=== PATIENT | female | born 1975 | race Caucasian/White ===

== ENCOUNTER 2021-01-26 17:02 | Emergency (ER) | payer MEDICARE, SELFPAY ==
[2021-01-26 17:26] VITALS: BP 138/79; PULSE 99; O2SAT 98
[2021-01-26 17:29] VITALS: BP 138/79; PULSE 96; RESP 25; TEMP 37.5; O2SAT 96; BMI 26.4
--- NOTE | 2021-01-26 17:32 | XR_ITS ---
PROCEDURE INFORMATION: Exam: XR Chest Exam date and time: 01/26/2021 5:32 PM Age: 45 years old Clinical indication: Shortness of breath; Additional info: SOA TECHNIQUE: Imaging protocol: XR of the chest. Views: 2 views. COMPARISON: No relevant prior studies available. FINDINGS: Tubes, catheters and devices: There is a dual lead right subclavian cardiac pacer device. Lungs: Hazy airspace disease in the right middle lobe and right lower lung, partially obscuring the right heart border and the medial right diaphragm. There is hazy opacity at the left cardiophrenic angle, which may be a pericardial fat pad rather than pulmonary infiltrate. Slight pulmonary hyperinflation. Pleural spaces: Unremarkable. No significant pleural effusion. No pneumothorax. Heart/Mediastinum: The cardiac silhouette is normal size. Vasculature: Large number of anterior left upper quadrant abdominal metallic coils, correlate with surgical history. Bones/joints: Sternotomy wires.There are spinal degenerative changes, with multilevel disc narrrowing and spondylosis. Gastrointestinal tract: Mild gaseous distention of left upper quadrant colon loops, no significantly dilated loops as visualized. IMPRESSION: 1. Hazy airspace disease in the right middle and lower lobes, correlate for pneumonia or less likely asymmetric edema. 2. Additional nonemergency and chronic findings as above.
[2021-01-26 17:41] VITALS: BP 127/70; PULSE 101; O2SAT 95
[2021-01-26 17:54] LABS: Coronavirus 19, PCR Not Detected (NotDetected); Influenza A, PCR Not Detected (NotDetected); Influenza B, PCR Not Detected (NotDetected)
[2021-01-26 17:59] LABS: Basophils # 0.1 K/mm3 (0-0.2); Basophils % 0.6 % (0.1-2.0); Eosinophils # 0.1 K/mm3 (0.0-0.4); Eosinophils % 0.7 % (0.1-12.0); Hematocrit 37.8 % (37.0-47.0); Hemoglobin 13.4 g/dL (12.2-16.2); Lymphocytes # 1.4 K/mm3 (0.7-4.5); Lymphocytes % 10.5 % (10-50); Mean Corpuscular HGB Conc 35.4 g/dL (31.8-35.4); Mean Corpuscular Volume 98.9 fl (81-99); Mean Platelet Volume 7.9 fl (7.4-10.4); Monocytes # 1.4 K/mm3 (0.1-1.0); Monocytes % 10.3 % (1.7-9.3); Neutrophils # 10.6 K/mm3 (1.8-7.8); Neutrophils % 77.8 % (37.0-80.0); Platelet Count 350 K/mm3 (142-424); Red Blood Count 3.82 M/mm3 (4.20-5.40); Red Cell Distribution Width 13.3 % (11.5-17.5); White Blood Count 13.6 K/mm3 (4.8-10.8)
[2021-01-26 18:00] VITALS: BP 123/75; PULSE 100; O2SAT 95
[2021-01-26 18:07] LABS: Alanine Aminotransferase 7 U/L (12-78); Albumin Level 4.1 g/dl (3.5-5.0); Albumin/Globulin Ratio 1.2 (1.1-1.8); Alkaline Phosphatase 58 U/L (38-126); Anion Gap 10.9 mEq/L (5-15); Aspartate Amino Transferase 38 U/L (14-36); Bilirubin,Total 0.8 mg/dl (0.2-1.3); Blood Urea Nitrogen 5 mg/dl (7-17); Calcium 8.9 mg/dl (8.4-10.2); Carbon Dioxide 28 mmol/L (22.0-30.0); Chloride 95 mmol/L (98-107); Creatinine Clearance Estimated 194 mL/min (50-200); Estimated Glomerular Filt Rate 172 ml/min (>60); GFR (African American) 208 ML/MIN (>60); Globulin 3.3 g/dL (1.3-3.2); Glucose 95 mg/dl (74-100); Potassium 3.9 mmoL/L (3.5-5.1); Sodium 130 mmol/L (136-145); Total Protein,Serum 7.4 g/dl (6.3-8.2)
[2021-01-26 18:08] LABS: Lactic Acid 1.5 mmol/L (0.7-2.1)
--- NOTE | 2021-01-26 19:13 | PC.NURSE ---
Called RT to request treatment
[2021-01-26 19:25] VITALS: PULSE 92; PULSE 95
--- NOTE | 2021-01-26 20:09 | HMH.EDGENADL ---
ED Disposition Clinical Impression: Pneumonia, COPD exacerbation Disposition: Home, Self-Care Condition on Discharge: Fair Instructions: Pneumonia-Adult, DI for Shortness of Breath Referrals: Wenceslao Gandara [Primary Care Provider] - - Critical Care Critical Care Time: No Attestation: On 01/26/21, the high probability of a clinically significant, sudden or life threatening deterioration of the following system(s) required my full and direct attention, intervention and personal management. The time I documented below is in addition to time spent performing reported procedures but includes the following listed in this critical care notation. Medical Decision Making - Myke Inquiry Pt receiving controlled substance: No Vital Signs: 01/26/21 17:26 01/26/21 17:29 01/26/21 17:41 Temperature 99.5 F Temperature Source Oral Pulse Rate 99 H 101 H Pulse Rate [Radial] 96 H Respiratory Rate 25 H Blood Pressure 138/79 127/70 Blood Pressure [Left Arm] 138/79 Blood Pressure Mean 88 88 Blood Pressure Mean [Left Arm] 98 02 Sat by Pulse Oximetry 98 96 95 Oxygen Delivery Method Room Air 01/26/21 18:00 01/26/21 19:25 Temperature Temperature Source Pulse Rate 100 H 92 H Pulse Rate [Radial] Respiratory Rate Blood Pressure 123/75 Blood Pressure [Left Arm] Blood Pressure Mean 87 Blood Pressure Mean [Left Arm] 02 Sat by Pulse Oximetry 95 Oxygen Delivery Method - Lab Data Lab Results 01/26/21 17:44: WBC 13.6 H, RBC 3.82 L, Hgb 13.4, Hct 37.8, MCV 98.9, MCH 35.0 H, MCHC 35.4, RDW 13.3, Plt Count 350, MPV 7.9, Neut % (Auto) 77.8, Lymph % (Auto) 10.5, [place] % (Auto) 10.3 H, Eos % (Auto) 0.7, Baso % (Auto) 0.6, Neut # (Auto) 10.6 H, Lymph # (Auto) 1.4, [place] # (Auto) 1.4 H, Eos # (Auto) 0.1, Baso # (Auto) 0.1 01/26/21 17:44: Sodium 130 L, Potassium 3.9, Chloride 95 L, Carbon Dioxide 28, Anion Gap 10.9, BUN 5 L, Creatinine 0.40 L, Estimated Creat Clear 194, Estimated GFR 172, Est GFR ( Amer) 208, Glucose 95, Calcium 8.9, Total Bilirubin 0.8, AST 38 H, ALT 7 L, Alkaline Phosphatase 58, Total Protein 7.4, Albumin 4.1, Globulin 3.3 H, Albumin/Globulin Ratio 1.2 01/26/21 17:44: Lactate 1.5 01/26/21 17:44: SARS-CoV-2 (PCR) Not detected, Influenza A Untype (PCR) Not detected, Influenza Type B (PCR) Not detected Result diagrams: 01/26/21 17:44 01/26/21 17:44 Orders (Tests/Meds): ED MEDICATIONS Generic Name Dose Route Start Last Admin Trade Name Freq PRN Reason Stop Dose Admin Doxycycline Hyclate 100 mg 01/26/21 21:00 01/26/21 19:20 Doxycycline Hycl 100 Mg Tablet PO 02/09/21 20:59 100 mg BID SADE Administration Discontinued Medications Generic Name Dose Route Start Last Admin Trade Name Freq PRN Reason Stop Dose Admin Albuterol/Ipratropium 3 ml 01/26/21 19:06 01/26/21 19:25 Ipratropium/Albuterol 3 Ml Neb IH 01/26/21 19:07 3 ml ONCE ONE Administration Amoxicillin/Clavulanate Potassium 125 mg 01/26/21 19:06 01/26/21 19:41 Amox & Pot Clavulanate 400-57mg/5ml 50ml Bottle PO 01/26/21 19:07 Not Given ONCE ONE Amoxicillin/Clavulanate Potassium 1 each 01/26/21 19:23 01/26/21 19:25 Amoxicillin/Pot Clavulan 500mg Tablet PO 01/26/21 19:24 1 each ONCE ONE Administration Methylprednisolone Sodium Succinate 125 mg 01/26/21 19:06 01/26/21 19:21 Methylprednisolone Sod Succ 125mg Vial IV 01/26/21 19:07 125 mg ONCE ONE Administration ORDERS Category Date Time Status Blood Culture Stat Micro 01/26/21 18:37 Received Medical Decision Narrative: DDx includes but not limited to COPD exacerbation, bacterial pneumonia, viral pneumonia, URI, arrhythmia. PERC negative. EKG obtained without acute ischemic changes, sinus rhythm. CXR with left sided opacity. Flattened diaphragm with large lung [place]. Given duoneb and decadron in ED. Given first dose abx for possible CAP including augmentin and doxycycline. Remains on room air, NAD. Will pl
[2021-01-26 20:50] VITALS: BP 119/96; PULSE 107; RESP 18; TEMP 36.7; O2SAT 95
== END 2021-01-26 20:54 | disposition home or self-care (01) ==
PROVIDERS: Emergency Provider Student in an Organized Health Care Education/Training Program; PCP Pediatrics
DX: J18.9 Pneumonia, unspecified organism (principal); J44.1 Chronic obstructive pulmonary disease with (acute) exacerbation
CPT/HCPCS: 36415; 71046; 80053; 83605; 85025; 87040; 87077; 87186; 96374; 99284; C9803; U0003; U0005

== ENCOUNTER 2021-01-27 22:15 | Observation (INO) | payer MEDICARE, SELFPAY ==
[2021-01-27 22:10] VITALS: BP 118/65; PULSE 100; RESP 18; TEMP 37.1; O2SAT 94; BMI 26.4
--- NOTE | 2021-01-27 22:18 | XR_ITS ---
PROCEDURE INFORMATION: Exam: XR Chest Exam date and time: 01/27/2021 10:18 PM Age: 45 years old Clinical indication: Pain; Cough and shortness of breath; Chest pressure; Prior surgery; Surgery date: 6+ months; Surgery type: Pacemaker 2000, open heart SX when PT was 2 years old; Patient HX: Cough, SOA, chest tightness, recent dx of pna in left lung, PT was in this er last night and was called by md saying she also has staph and needed to come in TECHNIQUE: Imaging protocol: XR of the chest. Views: 1 view. COMPARISON: CR XR CHEST 2V 01/26/2021 5:35 PM FINDINGS: Tubes, catheters and devices: Right subclavian pacemaker leads overlie the right atrium and right ventricle. Lungs: Bilateral pulmonary infiltrates left greater than right, worse since comparison. Pleural spaces: Unremarkable. No pleural effusion. No pneumothorax. Heart/Mediastinum: Unremarkable. No cardiomegaly. Bones/joints: Remote median sternotomy. IMPRESSION: Bilateral pulmonary infiltrates left greater than right, worse since comparison.
[2021-01-27 22:30] VITALS: BP 110/71; PULSE 104; O2SAT 94
--- NOTE | 2021-01-27 22:39 | HMH.EDGENADL ---
ED Disposition Clinical Impression: Positive blood culture Bilateral pneumonia Qualifiers: Pneumonia type: due to unspecified organism Lung location: lower lobe of lung Qualified Code(s): J18.9 - Pneumonia, unspecified organism Disposition: Admitted As Inpatient Condition on Discharge: Fair Time of Disposition: 00:33 - Critical Care Critical Care Time: No Attestation: On 01/27/21, the high probability of a clinically significant, sudden or life threatening deterioration of the following system(s) required my full and direct attention, intervention and personal management. The time I documented below is in addition to time spent performing reported procedures but includes the following listed in this critical care notation. Medical Decision Making - Medical Records Medical records reviewed: Yes: I reviewed the patient's medical records. - Myke Inquiry Pt receiving controlled substance: No Vital Signs: 01/27/21 22:10 01/27/21 22:30 01/27/21 23:01 Temperature 98.8 F Temperature Source Oral Pulse Rate 104 H 95 H Pulse Rate [Apical] 100 H Respiratory Rate 18 Blood Pressure 110/71 105/81 L Blood Pressure [Right Arm] 118/65 Blood Pressure Mean [Right Arm] 82 Blood Pressure Source [Right Arm] Automatic Cuff Blood Pressure Position [Right Arm] Sitting 02 Sat by Pulse Oximetry 94 L 94 L 95 Oxygen Delivery Method Room Air 01/27/21 23:24 01/27/21 23:32 Temperature Temperature Source Pulse Rate 85 81 Pulse Rate [Apical] Respiratory Rate Blood Pressure 112/83 119/86 Blood Pressure [Right Arm] Blood Pressure Mean [Right Arm] Blood Pressure Source [Right Arm] Blood Pressure Position [Right Arm] 02 Sat by Pulse Oximetry 96 95 Oxygen Delivery Method - Lab Data Lab Results 01/27/21 22:27: WBC 18.6 H D, RBC 3.72 L, Hgb 13.1, Hct 36.2 L, MCV 97.3, MCH 35.1 H, MCHC 36.0 H, RDW 13.4, Plt Count 347, MPV 7.9, Neut % (Auto) 80.6 H, Lymph % (Auto) 10.6, [place] % (Auto) 8.1, Eos % (Auto) 0.3, Baso % (Auto) 0.4, Neut # (Auto) 15.0 H, Lymph # (Auto) 2.0, [place] # (Auto) 1.5 H, Eos # (Auto) 0.1, Baso # (Auto) 0.1 01/27/21 22:27: Sodium 132 L, Potassium 3.0 L D, Chloride 96 L, Carbon Dioxide 29, Anion Gap 10.0, BUN 6 L, Creatinine 0.40 L, Estimated Creat Clear 194, Estimated GFR 172, Est GFR ( Amer) 208, Glucose 108 H, Calcium 9.1, Total Bilirubin 0.6, AST 30, ALT 7 L, Alkaline Phosphatase 77, Total Protein 7.0, Albumin 3.8, Globulin 3.2, Albumin/Globulin Ratio 1.2, Procalcitonin 0.059 01/27/21 22:27: Lactate 1.4 01/27/21 23:00: SARS-CoV-2 (PCR) Not detected, Influenza A Untype (PCR) Not detected, Influenza Type B (PCR) Not detected Result diagrams: 01/27/21 22:27 01/27/21 22:27 Orders (Tests/Meds): ED MEDICATIONS Generic Name Dose Route Start Last Admin Trade Name Freq PRN Reason Stop Dose Admin Acetaminophen 650 mg 01/28/21 00:53 Acetaminophen 325mg Tab PO 02/27/21 00:52 Q4HP PRN Fever or Mild Pain Gabapentin 600 mg 01/28/21 09:00 Gabapentin 600mg Tablet PO 02/27/21 08:59 TID [facility] Vancomycin/PEG/NADA/Lysine/Water 1.25 gm in 250 mls @ 125 mls/hr 01/28/21 18:00 Vancomycin 1.25gm/250ml (Peg) Premix IV 02/11/21 17:59 Q18H [facility] Sodium Chloride 1,000 mls @ 150 mls/hr 01/28/21 01:00 Sod Chlor 0.9% 1000ml Bag IV 02/27/21 00:59 .Q6H40M [facility] Ibuprofen 400 mg 01/28/21 00:53 Ibuprofen 400 Mg Tablet PO 02/27/21 00:52 Q6HP PRN Mild Pain Miscellaneous 1 each 01/27/21 22:45 01/28/21 00:19 Vancomycin Consult Request * 02/26/21 22:44 1 each CONSULT PHARMACY [facility] Administration Non-Formulary Medication 90 mcg 01/28/21 09:00 Albuterol Sulfate [Proair Respiclick] IH 02/27/21 08:59 DAILY SADE Non-Formulary Medication 0.5 mg 01/28/21 09:00 Clonazepam [Clonazepam] PO 02/27/21 08:59 DAILY SADE Non-Formulary Medication 500 mg 01/28/21 09:00 Divalproex Sodium [Depakote Er] PO 02/27/21 08
[2021-01-27 22:46] LABS: Basophils # 0.1 K/mm3 (0-0.2); Basophils % 0.4 % (0.1-2.0); Eosinophils # 0.1 K/mm3 (0.0-0.4); Eosinophils % 0.3 % (0.1-12.0); Hematocrit 36.2 % (37.0-47.0); Hemoglobin 13.1 g/dL (12.2-16.2); Lymphocytes % 10.6 % (10-50); Mean Corpuscular Hemoglobin 35.1 pg (27.0-31.2); Mean Corpuscular Volume 97.3 fl (81-99); Mean Platelet Volume 7.9 fl (7.4-10.4); Monocytes # 1.5 K/mm3 (0.1-1.0); Monocytes % 8.1 % (1.7-9.3); Neutrophils % 80.6 % (37.0-80.0); Platelet Count 347 K/mm3 (142-424); Red Blood Count 3.72 M/mm3 (4.20-5.40); Red Cell Distribution Width 13.4 % (11.5-17.5); White Blood Count 18.6 K/mm3 (4.8-10.8)
[2021-01-27 22:50] LABS: Alanine Aminotransferase 7 U/L (12-78); Albumin Level 3.8 g/dl (3.5-5.0); Albumin/Globulin Ratio 1.2 (1.1-1.8); Alkaline Phosphatase 77 U/L (38-126); Aspartate Amino Transferase 30 U/L (14-36); Bilirubin,Total 0.6 mg/dl (0.2-1.3); Blood Urea Nitrogen 6 mg/dl (7-17); Calcium 9.1 mg/dl (8.4-10.2); Carbon Dioxide 29 mmol/L (22.0-30.0); Chloride 96 mmol/L (98-107); Creatinine Clearance Estimated 194 mL/min (50-200); Estimated Glomerular Filt Rate 172 ml/min (>60); GFR (African American) 208 ML/MIN (>60); Globulin 3.2 g/dL (1.3-3.2); Glucose 108 mg/dl (74-100); MANUAL DIFFERENTIAL MANUAL DIFFERENTIAL (MANUAL DIFF); Sodium 132 mmol/L (136-145)
[2021-01-27 22:51] LABS: Lactic Acid 1.4 mmol/L (0.7-2.1)
--- NOTE | 2021-01-27 22:58 | PC.NURSE ---
Spoke with Mp and he will add orders for Vanc.
[2021-01-27 23:01] VITALS: BP 105/81; PULSE 95; O2SAT 95
[2021-01-27 23:05] LABS: Coronavirus 19, PCR Not Detected (NotDetected); Influenza A, PCR Not Detected (NotDetected); Influenza B, PCR Not Detected (NotDetected)
[2021-01-27 23:07] LABS: Procalcitonin 0.059 ng/mL (0.0-2.0)
[2021-01-27 23:24] VITALS: BP 112/83; PULSE 85; O2SAT 96
[2021-01-27 23:32] VITALS: BP 119/86; PULSE 81; O2SAT 95
[2021-01-28] VITALS (12 sets, daily range): BP systolic 96–116; BP diastolic 47–63; PULSE 65–97; RESP 14–21; TEMP 36.6–37.3; O2SAT 92–98; BMI 25.7; BMI 25.6
--- NOTE | 2021-01-28 00:46 | PC.NURSE ---
Paging MD on for service for admission
--- NOTE | 2021-01-28 00:55 | PC.NURSE ---
Pt admitted [facility] to [facility]
[2021-01-28 01:19] LABS: Lymphocytes % 16 % (10-50); Macrocytosis 1+; Monocytes % 2 % (2-9); Neutrophils % 82 % (42-76); Platelet Estimate Normal; Total Cells Counted 100
--- NOTE | 2021-01-28 01:56 | PC.NURSE ---
Report called to [facility] at this time
--- NOTE | 2021-01-28 03:07 | PC.NURSE ---
patient up to floor @ 02:45am.
--- NOTE | 2021-01-28 06:28 | PC.NURSE ---
Ирина from lab called with a positive gram stain on patient Resulted gram + cocci in clusters Name, , & result verified x2 MD library information technician paged
--- NOTE | 2021-01-28 07:59 | HMH.PHAVTE ---
[facility] Pharmacy VTE Monitoring - Patient Demographics Admission date: 01/28/21 Report Date: 01/28/21 Time: 07:59 Allergies/Adverse Reactions: Patient Allergies hydromorphone [From Dilaudid] Allergy (Unknown, Verified 01/28/21 01:23) quetiapine [From Seroquel] Allergy (Unknown, Verified 01/28/21 01:23) Paroxetine Allergy (Intermediate, Uncoded 02/22/17 15:32) DYSTONIA Haloperidol Allergy (Unknown, Uncoded 02/22/17 15:32) Height: 1.63 m Weight: 68.039 kg Patient Problems: Current Active Problems Positive blood culture (Acute) Bilateral pneumonia (Acute) - VTE Risk Labs: VTE Related Lab Results Hgb 13.1 g/dL (12.2-16.2) 01/27/21 22:27 Hct 36.2 % (37.0-47.0) L 01/27/21 22:27 Plt Count 347 K/mm3 (142-424) 01/27/21 22:27 BUN 6 mg/dl (7-17) L 01/27/21 22:27 Creatinine 0.40 mg/dl (0.52-1.04) L 01/27/21 22:27 Estimated Creat Clear 194 mL/min (50-200) 01/27/21 22:27 Was VTE Risk Assessment Performed: Yes VTE Score: 4 VTE Risk Level: Low Risk Clinical Trial Participant: No - Prophylaxis VTE Prophylaxis Ordered?: Yes Types of VTE Prophylaxis: TEDS Knee High
--- NOTE | 2021-01-28 08:04 | HMH.PHAINT ---
verified home medication list using list from [facility]
--- NOTE | 2021-01-28 08:52 | HMH.HP ---
*Admission Date: 01/28/21 <Lazara Michaels - 01/28/21 09:03> *Chief complaint: shortness of breath, cough <Lazara Michaels - 01/28/21 09:03> *History of present illness: 45-year-old female presenting to the emergency department with cough, body aches, generalized malaise. She started to feel sick 2 weeks ago. Was diagnosed with bronchitis and then pneumonia yesterday at our emergency department. Blood cultures were obtained. She was called today and told that her blood cultures were positive. Returns to the emergency department by EMS. She started taking Augmentin and doxycycline yesterday. Continues to have fevers and chills. Has a cough that is dry and hacking. Body aches. No headache. No back pain. She has a history of open heart surgery as a , hole in her heart. Had a myocardial infarction 20 years ago. Was not told of any abnormalities on her echocardiogram like a vegetation. Has not used IV drugs in at least 20 years. In summary this is a 45-year-old female presenting to the emergency department with cough, body aches, positive blood cultures. Patient clinically stable on arrival. Vital signs within normal limits. No fever. No tachycardia. No hypotension. Concern for bacteremia, sepsis, endocarditis. Will obtain CBC, CMP, procalcitonin, venous lactic acid, chest x-ray, urinalysis. I raised reviewed patient's work-up from yesterday. Blood cultures were positive for gram-positive cocci in pairs. Likely MRSA. Patient given vancomycin and cefepime. Laboratory results show significantly elevated white blood cell count, 18,000. Hypokalemia at 3.0. Patient given 40 mEq p.o. potassium. Chest x-ray shows worsening pneumonia. Patient is receiving broad-spectrum antibiotics. We will admit for further management of pneumonia with bacteremia. Dr. Hill consulted. (above as per ER physician) <Lazara Micheals - 01/28/21 09:03> [facility] History I have reviewed the patient's past medical history: Yes <Lazara Michaels - 01/28/21 09:03> Medical History: Reports:: Congestive Heart Failure, Chronic Obstructive Pulmonary Disease (COPD), Internal Pacemaker, Myocardial Infarction Denies:: Cancer, Diabetes Mellitus Type 1, Diabetes Mellitus Type 2, MRSA <Lazara Michaels 11/24/21 09:03> *Have you ever received a pneumonia vaccine?: Yes <Lazara Michaels 01/28/21 09:03> *Have you received a flu vaccine this season?: Yes <Lazara Michaels 01/28/21 09:03> Other Surgeries: Yes: Open Heart Surgery, Pacemaker <Lazara Michaels 01/28/21 09:03> Amputation: No <Lazara Michaels 01/28/21 09:03> Fractures: No <Lazara Michaels 01/28/21 09:03> - *Social History Last grade of school completed: High school graduate <Lazara Michaels 01/28/21 09:03> Smoking Status: Current every day smoker <Lazara Michaels 01/28/21 09:03> # Packs/Day (cigarettes): 1 <Lazara Michaels 01/28/21 09:03> Alcohol Intake: never <Lazara Michaels 01/28/21 09:03> *Occupational Status:: other <Lazara Michaels 01/28/21 09:03> Housing: house <Lazara Michaels 01/28/21 09:03> *Travel in the last 8 weeks: Inside the [place] <Lazara Michaels 01/28/21 09:03> Family Hx:: Cancer, Coronary Artery Disease <Lazara Michaels 01/28/21 09:03> Review of Systems - Constitutional Reports body ache(s), Reports chills, Reports fever(s), Reports weakness <Lazara Michaels 01/28/21 09:03> - Eyes Denies blurry vision, Denies double vision <Lazara Michaels 01/28/21 09:03> - ENT Reports nasal congestion, Denies sore throat <Lazara Michaels 01/28/21 09:03> - *Cardiovascular Reports shortness of breath, Denies chest pain <Lazara Michaels 01/28/21 09:03> - *Respiratory Reports cough, Reports shortness of breath <Lazara Michaels 01/28/21 09:03> - *Gastrointestinal Reports nausea, Denies abdominal pain, Denies loose stools, Denies vomiting <Lazara Michaels 01/28/21 09:03> - *Genitourinary Denies difficulty urinating, Denies painful urination <Lazara Michaels -
--- NOTE | 2021-01-28 09:41 | HMH.PHACONS ---
- Pharmacy Consult Date: 01/28/21 Time: 09:41 Referring provider: DR. BATES Reason for Consult:: VANCOMYCIN DOSING Allergies and ADEs:: Allergies Allergy/AdvReac Type Severity Reaction Status Date / Time hydromorphone [From Dilaudid] Allergy Unknown Verified 01/28/21 01:23 quetiapine [From Seroquel] Allergy Unknown Verified 01/28/21 01:23 Paroxetine Allergy Intermediate DYSTONIA Uncoded 02/22/17 15:32 Haloperidol Allergy Unknown Uncoded 02/22/17 15:32 Home Medications:: Home Medications Medication Instructions Recorded Confirmed Type Albuterol Sulfate [Proair 2 puff IH Q4HP PRN 01/27/21 01/28/21 History Respiclick] Amoxicillin/Potassium Clav 1 tab PO TID 01/27/21 01/28/21 History [Augmentin 500mg tab] Divalproex Sodium [Depakote ER] 500 mg PO BID 01/27/21 01/28/21 History Doxycycline Hyclate [Doxycycline 100 mg PO BID 01/27/21 01/28/21 History Hyclate 100mg Tablet] Duloxetine HCl 60 mg PO PM 01/27/21 01/28/21 History Gabapentin 600 mg PO TID 01/27/21 01/28/21 History OXcarbazepine [Oxcarbazepine] 450 mg PO HS 01/27/21 01/28/21 History Trazodone HCl 50 mg PO HS 01/27/21 01/28/21 History clonazePAM [Clonazepam] 1 mg PO BID 01/27/21 01/28/21 History Aspirin [Aspirin 81mg chewable 81 mg PO DAILY 01/28/21 01/28/21 History tab] OLANZapine [Olanzapine] 10 mg PO HS 01/28/21 01/28/21 History Height: 1.63 m Weight: 68.039 kg Laboratory Results:: Laboratory Results - last 24 hr 01/27/21 22:27: WBC 18.6 H D, RBC 3.72 L, Hgb 13.1, Hct 36.2 L, MCV 97.3, MCH 35.1 H, MCHC 36.0 H, RDW 13.4, Plt Count 347, MPV 7.9, Neut % (Auto) 80.6 H, Lymph % (Auto) 10.6, [place] % (Auto) 8.1, Eos % (Auto) 0.3, Baso % (Auto) 0.4, Neut # (Auto) 15.0 H, Lymph # (Auto) 2.0, [place] # (Auto) 1.5 H, Eos # (Auto) 0.1, Baso # (Auto) 0.1, Total Counted 100, Neutrophils % (Manual) 82 H, Lymphocytes % (Manual) 16, Monocytes % (Manual) 2, Platelet Estimate Normal, Macrocytosis 1+ 01/27/21 22:27: Sodium 132 L, Potassium 3.0 L D, Chloride 96 L, Carbon Dioxide 29, Anion Gap 10.0, BUN 6 L, Creatinine 0.40 L, Estimated Creat Clear 194, Estimated GFR 172, Est GFR ( Amer) 208, Glucose 108 H, Calcium 9.1, Total Bilirubin 0.6, AST 30, ALT 7 L, Alkaline Phosphatase 77, Total Protein 7.0, Albumin 3.8, Globulin 3.2, Albumin/Globulin Ratio 1.2, Procalcitonin 0.059 01/27/21 22:27: Lactate 1.4 01/27/21 23:00: SARS-CoV-2 (PCR) Not detected, Influenza A Untype (PCR) Not detected, Influenza Type B (PCR) Not detected Medical History: Reports:: Congestive Heart Failure, Chronic Obstructive Pulmonary Disease (COPD), Internal Pacemaker, Myocardial Infarction Denies:: Cancer, Diabetes Mellitus Type 1, Diabetes Mellitus Type 2, MRSA Assessment and Plan (1) Bilateral pneumonia Status: Acute Qualifiers: Pneumonia type: due to unspecified organism Lung location: lower lobe of lung Qualified Code(s): J18.9 - Pneumonia, unspecified organism Category: Medical Code(s): J18.9 - Pneumonia, unspecified organism (2) Positive blood culture Status: Acute Category: Medical Code(s): R78.81 - Bacteremia (3) COPD (chronic obstructive pulmonary disease) Status: Acute Category: Medical Code(s): J44.9 - Chronic obstructive pulmonary disease, unspecified (4) Coronary artery disease Status: Acute Category: Medical Code(s): I25.10 - Atherosclerotic heart disease of [place] coronary artery without angina pectoris (5) History of [place] (myocardial infarction) Status: Acute Category: Medical Code(s): I25.2 - Old myocardial infarction (6) Hypokalemia Status: Acute Category: Medical Code(s): E87.6 - Hypokalemia - Assessment and plan all Dx Assessment and Plan for all problems:: PATIENT RECEIVED VANCOMYCIN 1500 MG X1 DOSE OVERNIGHT. RECOMMEND PATIENT CONTINUE WITH VANCOMYCIN 1250 MG Q18H STARTING AT 1700 TONIGHT. PHARMACY WILL FOLLOW DAILY AND ADJUST APPROPRIATE.
[2021-01-29] VITALS (10 sets, daily range): BP systolic 92–136; BP diastolic 53–85; PULSE 68–91; RESP 17–19; TEMP 36.3–37; O2SAT 93–98; BMI 25.6
--- NOTE | 2021-01-29 02:27 | ECG_ITS ---
APPROVED REPORT Exam: Resting ECG HR:68 bpm ECG Measurements Heart Rate 68 AXES ND 182 P 71 QRSd 92 QRS 210 QT 420 T 73 QTc 446 Conclusion Normal sinus rhythm Borderline left axis deviation Poor R wave progression, unchanged Abnormal ECG Electronically signed by : Rosalino Rutledge MD 01/30/2021 12:12:14
--- NOTE | 2021-01-29 02:38 | PC.NURSE ---
At 0145 tree warden called this RN stating that the patient needed her nurse. This RN went to see the patient and the patient had complaints of chest pain. Patient described the pain as cardiac in nature. Patient was found laying in bed teary eyed from the pain. A EKG was done, vitals where taken (see vitals) and MD computer systems information director was paged for further management of pain.
[2021-01-29 06:58] LABS: Basophils # 0.1 K/mm3 (0-0.2); Basophils % 0.9 % (0.1-2.0); Eosinophils # 0.2 K/mm3 (0.0-0.4); Eosinophils % 1.9 % (0.1-12.0); Hematocrit 34.9 % (37.0-47.0); Hemoglobin 11.7 g/dL (12.2-16.2); Lymphocytes # 3.1 K/mm3 (0.7-4.5); Lymphocytes % 35.8 % (10-50); Mean Corpuscular HGB Conc 33.4 g/dL (31.8-35.4); Mean Corpuscular Volume 101.9 fl (81-99); Mean Platelet Volume 7.8 fl (7.4-10.4); Monocytes # 1.1 K/mm3 (0.1-1.0); Monocytes % 13.2 % (1.7-9.3); Neutrophils # 4.2 K/mm3 (1.8-7.8); Neutrophils % 48.2 % (37.0-80.0); Platelet Count 295 K/mm3 (142-424); Red Blood Count 3.43 M/mm3 (4.20-5.40); Red Cell Distribution Width 13.5 % (11.5-17.5); White Blood Count 8.7 K/mm3 (4.8-10.8)
[2021-01-29 07:12] LABS: Anion Gap 7.7 mEq/L (5-15); Blood Urea Nitrogen 2 mg/dl (7-17); Calcium 8.1 mg/dl (8.4-10.2); Carbon Dioxide 29 mmol/L (22.0-30.0); Chloride 103 mmol/L (98-107); Creatinine Clearance Estimated 189 mL/min (50-200); Estimated Glomerular Filt Rate 172 ml/min (>60); GFR (African American) 208 ML/MIN (>60); Glucose 81 mg/dl (74-100); Sodium 137 mmol/L (136-145)
[2021-01-29 07:18] LABS: Potassium 2.7 mmoL/L (3.5-5.1)
--- NOTE | 2021-01-29 08:27 | HMH.ACPN2 ---
Internal Medicine - PN: Subj *Date: 01/29/21 *Time: 08:27 Interval history: She had an episode of noncardiac chest pain during the night. It was more pleuritic in nature. EKG showed no acute changes. No complaints this morning. She is still somewhat short of breath and has a productive cough. She has not been getting out of bed much. Exam Vital signs and Labs for Last 24 Hours: Temp Pulse Resp BP Pulse Ox 97.6 F 91 H 17 115/61 93 L 01/29/21 07:28 01/29/21 07:28 01/29/21 07:28 01/29/21 07:28 01/29/21 07:28 Laboratory Results - last 24 hr 01/29/21 06:20: WBC 8.7 D, RBC 3.43 L, Hgb 11.7 L, Hct 34.9 L, MCV 101.9 H, MCH 34.0 H, MCHC 33.4, RDW 13.5, Plt Count 295, MPV 7.8, Neut % (Auto) 48.2, Lymph % (Auto) 35.8, [place] % (Auto) 13.2 H, Eos % (Auto) 1.9, Baso % (Auto) 0.9, Neut # (Auto) 4.2, Lymph # (Auto) 3.1, [place] # (Auto) 1.1 H, Eos # (Auto) 0.2, Baso # (Auto) 0.1 01/29/21 06:20: Sodium 137, Potassium 2.7 L*, Chloride 103, Carbon Dioxide 29, Anion Gap 7.7, BUN 2 L D, Creatinine 0.40 L, Estimated Creat Clear 189, Estimated GFR 172, Est GFR ( Amer) 208, Glucose 81, Calcium 8.1 L I & O for Last 24 hours: Intake & Output 01/26/21 01/27/21 01/28/21 01/29/21 11:59 11:59 11:59 11:59 Intake Total 7200 / 7200 Balance 7200 / 7200 Weight 150 lb 150 lb Microbiology Reports for the Last 24 Hours: Microbiology 01/28/21 13:36 Sputum - Expectorated Sputum Gram Stain - Final Narrative: She is awakened from sleep. She is alert and oriented. No respiratory distress. Color is normal. Chest with bilateral rhonchi and wheezes. Heart is regular. Abdomen soft and nondistended with no tenderness. Extremities no edema. White blood cell count is normal. Potassium is low at 2.7. Assessment and Plan (1) Bilateral pneumonia Status: Acute Qualifiers: Pneumonia type: due to unspecified organism Lung location: lower lobe of lung Qualified Code(s): J18.9 - Pneumonia, unspecified organism Category: Medical Code(s): J18.9 - Pneumonia, unspecified organism (2) Positive blood culture Status: Acute Category: Medical Code(s): R78.81 - Bacteremia (3) COPD (chronic obstructive pulmonary disease) Status: Acute Category: Medical Code(s): J44.9 - Chronic obstructive pulmonary disease, unspecified (4) Coronary artery disease Status: Acute Category: Medical Code(s): I25.10 - Atherosclerotic heart disease of [place] coronary artery without angina pectoris (5) History of [place] (myocardial infarction) Status: Acute Category: Medical Code(s): I25.2 - Old myocardial infarction (6) Hypokalemia Status: Acute Category: Medical Code(s): E87.6 - Hypokalemia (7) Depression with anxiety Status: Acute Category: Medical Code(s): F41.8 - Other specified anxiety disorders (8) Presence of cardiac pacemaker Status: Acute Category: Medical Code(s): Z95.0 - Presence of cardiac pacemaker - Assessment and plan all Dx Assessment and Plan for all problems:: Blood cultures are growing gram-positive cocci. One bottle has ID'ed as staph epidermidis. Continue current antibiotic regimen pending final blood and sputum cultures. Add Solu-Medrol. Replace potassium. Encourage out of bed activity.
--- NOTE | 2021-01-29 15:49 | PC.NURSE ---
PT IS RESTING IN BED. ALERT AND ORIENTED X4. PT HAS AMBULATED TO THE BATHROOM. EATING AND DRINKING WELL. MEDICATED PER MAR FOR LEG DISCOMFORT. LUNG SOUNDS HAVE SCATTERED WHEEZES. ABDOMEN SOFT/NON TENDER WITH ACTIVE BOWEL SOUNDS. VSS. WILL CONTINUE TO MONITOR.
[2021-01-29 17:14] LABS: Vancomycin,Trough 6.8 ug/mL (5.0-10.0)
[2021-01-29 21:45] LABS: Vancomycin,Peak 20.8 ug/ml (11-39)
[2021-01-30] VITALS: BP 125/69; PULSE 85; RESP 20; TEMP 36.9
[2021-01-30 04:00] VITALS: BP 138/78; PULSE 84; RESP 16; TEMP 36.5; O2SAT 92
[2021-01-30 04:45] VITALS: BMI 25.6
[2021-01-30 05:30] VITALS: PULSE 75; PULSE 81
[2021-01-30 06:48] LABS: Basophils # 0.1 K/mm3 (0-0.2); Basophils % 0.3 % (0.1-2.0); Eosinophils % 0.2 % (0.1-12.0); Hematocrit 32.3 % (37.0-47.0); Lymphocytes # 1.2 K/mm3 (0.7-4.5); Lymphocytes % 7.6 % (10-50); Mean Corpuscular HGB Conc 34.1 g/dL (31.8-35.4); Mean Corpuscular Hemoglobin 34.6 pg (27.0-31.2); Mean Corpuscular Volume 101.3 fl (81-99); Mean Platelet Volume 7.8 fl (7.4-10.4); Monocytes # 0.5 K/mm3 (0.1-1.0); Monocytes % 3.5 % (1.7-9.3); Neutrophils # 13.6 K/mm3 (1.8-7.8); Neutrophils % 88.4 % (37.0-80.0); Platelet Count 310 K/mm3 (142-424); Red Blood Count 3.19 M/mm3 (4.20-5.40); Red Cell Distribution Width 13.3 % (11.5-17.5); White Blood Count 15.4 K/mm3 (4.8-10.8)
[2021-01-30 06:57] LABS: Anion Gap 7.8 mEq/L (5-15); Calcium 8.8 mg/dl (8.4-10.2); Carbon Dioxide 28 mmol/L (22.0-30.0); Chloride 105 mmol/L (98-107); Creatinine Clearance Estimated 252 mL/min (50-200); Estimated Glomerular Filt Rate 239 ml/min (>60); GFR (African American) 290 ML/MIN (>60); Glucose 194 mg/dl (74-100); Sodium 138 mmol/L (136-145)
[2021-01-30 07:02] LABS: Blood Urea Nitrogen 2 mg/dl (7-17); Potassium 2.8 mmoL/L (3.5-5.1)
--- NOTE | 2021-01-30 07:06 | PC.NURSE ---
lab notified RN that pt has critical lab result of potassium 2.8, notified MD Hill directional bore operator of pt's critical potassium, stated would look into it when he arrives, no new orders at this time
[2021-01-30 07:12] LABS: MANUAL DIFFERENTIAL MANUAL DIFFERENTIAL (MANUAL DIFF)
[2021-01-30 07:59] LABS: Lymphocytes % 15 % (10-50); Monocytes % 5 % (2-9); Neutrophils % 80 % (42-76); Platelet Estimate Normal; RBC Morphology Normal; Total Cells Counted 100
[2021-01-30 08:00] VITALS: BP 120/74; PULSE 88; RESP 18; TEMP 36.4; O2SAT 96
--- NOTE | 2021-01-30 08:54 | HMH.ACPN2 ---
<Lazara Michaels - Last Filed: 01/30/21 08:54> Internal Medicine - PN: Subj *Date: 01/30/21 *Time: 08:54 Interval history: Patient is feeling much better today. She has been off of her oxygen and has taken multiple trips down to the emergency room with satisfactory oxygen saturations. She still complains of some chest pain that is controlled with Fine. She slept better last night and has been eating well. She wants to go home today. Exam Vital signs and Labs for Last 24 Hours: Temp Pulse Resp BP Pulse Ox 97.7 F 81 16 138/78 92 L 01/30/21 04:00 01/30/21 05:30 01/30/21 04:00 01/30/21 04:00 01/30/21 04:00 Laboratory Results - last 24 hr 01/29/21 16:42: Vancomycin Trough 6.8 01/29/21 21:00: Vancomycin Peak 20.8 01/30/21 06:28: WBC 15.4 H D, RBC 3.19 L, Hgb 11.0 L, Hct 32.3 L, MCV 101.3 H, MCH 34.6 H, MCHC 34.1, RDW 13.3, Plt Count 310, MPV 7.8, Neut % (Auto) 88.4 H, Lymph % (Auto) 7.6 L, [place] % (Auto) 3.5, Eos % (Auto) 0.2, Baso % (Auto) 0.3, Neut # (Auto) 13.6 H, Lymph # (Auto) 1.2, [place] # (Auto) 0.5, Eos # (Auto) 0.0, Baso # (Auto) 0.1, Total Counted 100, Neutrophils % (Manual) 80 H, Lymphocytes % (Manual) 15, Monocytes % (Manual) 5, Platelet Estimate Normal, RBC Morphology Normal 01/30/21 06:28: Sodium 138, Potassium 2.8 L*, Chloride 105, Carbon Dioxide 28, Anion Gap 7.8, BUN 2 L, Creatinine 0.30 L D, Estimated Creat Clear 252, Estimated GFR 239, Est GFR ( Amer) 290 D, Glucose 194 H, Calcium 8.8 I & O for Last 24 hours: Intake & Output 01/27/21 01/28/21 01/29/21 01/30/21 11:59 11:59 11:59 11:59 Intake Total 7200 / 7200 2620 / 2620 Balance 7200 / 7200 2620 / 2620 Weight 150 lb 150 lb 149 lb 15.687 oz Microbiology Reports for the Last 24 Hours: Microbiology 01/28/21 13:36 Sputum - Expectorated Sputum Gram Stain - Final 01/28/21 13:36 Sputum - Expectorated Sputum Sputum Culture - Preliminary 01/27/21 22:27 Blood Blood Culture - Preliminary NO GROWTH AFTER 48 HOURS 01/27/21 22:27 Blood Blood Culture - Preliminary NO GROWTH AFTER 48 HOURS - Constitutional no acute distress - *Routine Respiratory Exam Present: wheezes (Still present but improved) - *Routine Cardiovascular Exam Present: RRR - *Routine Abdominal Exam Present: soft, normoactive bowel sounds. Absent: tenderness - *Routine Extremities Exam Absent: cyanosis, clubbing, edema - *Routine Skin Exam Present: warm. Absent: rash - *Routine Neurological Exam Present: alert, oriented X3 Assessment and Plan (1) Bilateral pneumonia Status: Acute Qualifiers: Pneumonia type: due to unspecified organism Lung location: lower lobe of lung Qualified Code(s): J18.9 - Pneumonia, unspecified organism Category: Medical Code(s): J18.9 - Pneumonia, unspecified organism (2) Positive blood culture Status: Acute Category: Medical Code(s): R78.81 - Bacteremia (3) COPD (chronic obstructive pulmonary disease) Status: Acute Category: Medical Code(s): J44.9 - Chronic obstructive pulmonary disease, unspecified (4) Coronary artery disease Status: Acute Category: Medical Code(s): I25.10 - Atherosclerotic heart disease of [place] coronary artery without angina pectoris (5) History of [place] (myocardial infarction) Status: Acute Category: Medical Code(s): I25.2 - Old myocardial infarction (6) Hypokalemia Status: Acute Category: Medical Code(s): E87.6 - Hypokalemia (7) Depression with anxiety Status: Acute Category: Medical Code(s): F41.8 - Other specified anxiety disorders (8) Presence of cardiac pacemaker Status: Acute Category: Medical Code(s): Z95.0 - Presence of cardiac pacemaker - Assessment and plan all Dx Assessment and Plan for all problems:: Patient is stable to be discharged home today on clindamycin and steroids. Her potassium is still low. We will give a run of potassium before disc
[2021-01-30 10:06] VITALS: PULSE 74; PULSE 77
--- NOTE | 2021-01-31 11:53 | HMH.DCSUM ---
General - General Admission date:: 01/28/21 <Tin Hill - 03/26/21 18:02> 01/28/21 <Lazara Michaels - 01/31/21 11:57> Discharge date: 01/30/21 <Lazara Michaels - 01/31/21 11:57> HPI HPI: 45-year-old female presenting to the emergency department with cough, body aches, generalized malaise. She started to feel sick 2 weeks ago. Was diagnosed with bronchitis and then pneumonia yesterday at our emergency department. Blood cultures were obtained. She was called today and told that her blood cultures were positive. Returns to the emergency department by EMS. She started taking Augmentin and doxycycline yesterday. Continues to have fevers and chills. Has a cough that is dry and hacking. Body aches. No headache. No back pain. She has a history of open heart surgery as a , hole in her heart. Had a myocardial infarction 20 years ago. Was not told of any abnormalities on her echocardiogram like a vegetation. Has not used IV drugs in at least 20 years. In summary this is a 45-year-old female presenting to the emergency department with cough, body aches, positive blood cultures. Patient clinically stable on arrival. Vital signs within normal limits. No fever. No tachycardia. No hypotension. Concern for bacteremia, sepsis, endocarditis. Will obtain CBC, CMP, procalcitonin, venous lactic acid, chest x-ray, urinalysis. I raised reviewed patient's work-up from yesterday. Blood cultures were positive for gram-positive cocci in pairs. Likely MRSA. Patient given vancomycin and cefepime. Laboratory results show significantly elevated white blood cell count, 18,000. Hypokalemia at 3.0. Patient given 40 mEq p.o. potassium. Chest x-ray shows worsening pneumonia. Patient is receiving broad-spectrum antibiotics. We will admit for further management of pneumonia with bacteremia. Dr. Hill consulted. (above as per ER physician) <Lazara Michaels - 01/31/21 11:57> Hospital Course Hospital Course: The patient was admitted and started on IV antibiotics due to preliminary blood cultures growing gram-positive cocci. Her chest x-ray showed bilateral pulmonary infiltrates. She was also started on duo nebs. She did have an episode of noncardiac chest pain which was more pleuritic in nature. She had an EKG which showed no changes. Solu-Medrol was added. Her potassium was replaced. Her final blood culture showed no growth at 48 hours and her sputum culture showed normal respiratory beth. She was able to be weaned off of oxygen and was up and walking with no difficulty. She wanted to be discharged home. She was stable to be discharged on clindamycin and steroids. She was given a run of potassium before discharge due to hypokalemia. She will follow-up with her family physician in [place]. <Lazara Michaels - 01/31/21 11:57> Objective Vital signs: Temp Pulse Resp BP Pulse Ox 97.6 F 74 18 120/74 96 01/30/21 08:00 01/30/21 10:06 01/30/21 08:00 01/30/21 08:00 01/30/21 08:00 <LizTin Elijah - 03/26/21 18:02> Temp Pulse Resp BP Pulse Ox 97.6 F 74 18 120/74 96 01/30/21 08:00 01/30/21 10:06 01/30/21 08:00 01/30/21 08:00 01/30/21 08:00 <Lazara Michaels - 01/31/21 11:57> Narrative: - Constitutional no acute distress - *Routine Respiratory Exam Present: wheezes (Still present but improved) - *Routine Cardiovascular Exam Present: RRR - *Routine Abdominal Exam Present: soft, normoactive bowel sounds. Absent: tenderness - *Routine Extremities Exam Absent: cyanosis, clubbing, edema - *Routine Skin Exam Present: warm. Absent: rash - *Routine Neurological Exam Present: alert, oriented X3 <Lazara Michaels - 01/31/21 11:57> Results Labs on day of discharge: Preliminary micro results at discharge 01/27/21 22:27 Blood Culture - Preliminary Blood NO GROWTH AFTER 48 HOURS 01/27/21 22:27 Blood Culture - Preliminary Blood NO GROWTH AFT
== END 2021-01-30 12:45 | disposition home or self-care (01) ==
LOC: ER 01-28 00:33 → 2ND 01-28 01:02
PROVIDERS: Admitting Provider Family Medicine; Emergency Provider Emergency Medicine; PCP Pediatrics; Visit Provider Family Medicine
DX: J18.9 Pneumonia, unspecified organism (principal); R78.81 Bacteremia; J44.9 Chronic obstructive pulmonary disease, unspecified; I25.10 Atherosclerotic heart disease of native coronary artery without angina pectoris; E87.6 Hypokalemia; Z95.0 Presence of cardiac pacemaker; F41.8 Other specified anxiety disorders; I25.2 Old myocardial infarction; I50.9 Heart failure, unspecified; F17.210 Nicotine dependence, cigarettes, uncomplicated; Z79.899 Other long term (current) drug therapy; Z88.8 Allergy status to other drugs, medicaments and biological substances; Z20.822 Contact with and (suspected) exposure to COVID-19
CPT/HCPCS: G0378; 36415; 71045; 80048; 80053; 80202; 83605; 84145; 85007; 85025; 87040; 87070; 87205; 93005; 93306; 94640; 96365; 96367; 99284; C9803; J0692; U0003; U0005

== ENCOUNTER 2021-07-05 18:19 | Emergency (ER) | payer MEDICARE, SELFPAY ==
[2021-07-05] VITALS (8 sets, daily range): BP systolic 110–121; BP diastolic 60–86; PULSE 82–87; RESP 12–22; TEMP 36.7–36.8; O2SAT 89–96; BMI 27.8
--- NOTE | 2021-07-05 18:41 | ECG_ITS ---
APPROVED REPORT Exam: Resting ECG HR:80 bpm ECG Measurements Heart Rate 80 AXES CO 212 P 61 QRSd 101 QRS -80 QT 396 T 49 QTc 431 Conclusion ELECTRONIC ATRIAL PACEMAKER LEFT AXIS DEVIATION [QRS AXIS < -30] POSSIBLE ANTERIOR MYOCARDIAL INFARCTION , PROBABLY OLD [30 ms Q WAVE IN V3/V4, OR R < 0.2 mV IN V4] ABNORMAL ECG UNCONFIRMED REPORT Electronically signed by : Rosalino Rutledge MD 07/08/2021 18:00:01
--- NOTE | 2021-07-05 18:41 | XR_ITS ---
PROCEDURE INFORMATION: Exam: XR Chest Exam date and time: 07/05/2021 6:44 PM Age: 45 years old Clinical indication: Cough and other: SOA; Prior surgery; Surgery date: 6+ months; Surgery type: Open heart at age 3. Two pacemakers; Additional info: Cough, SOA TECHNIQUE: Imaging protocol: XR of the chest. Views: 2 views. COMPARISON: CR XR CHEST PORTABLE 01/27/2021 10:32 PM FINDINGS: Tubes, catheters and devices: A dual lead right subclavian cardiac pacemaker. Chronic surgical clips in the lower right neck. Lungs: There is chronic versus recurrent airspace disease in the right middle lobe and medial right lower lobe, obscuring the lower right heart border and medial right diaphragm, worrisome for pneumonia though this may be in part due to chronic scarring. Minimal subsegmental atelectasis in the left lung base, with no significant airspace opacity visible. Pleural spaces: Unremarkable. No significant pleural effusion. No pneumothorax. Heart/Mediastinum: The heart is not enlarged. Bones/joints: Sternotomy wires. There are spinal degenerative changes, with multilevel disc narrrowing and spondylosis. Soft tissues: No acute findings in the soft tissues. Intraperitoneal space: Left upper quadrant abdominal surgical changes. IMPRESSION: 1. There is chronic versus recurrent airspace disease in the medial right middle lobe and right lower lobe, correlate for pneumonia. 2. Dual lead cardiac pacemaker, no cardiomegaly or significant vascular congestion seen. 3. Additional nonemergency and chronic findings as above.
--- NOTE | 2021-07-05 18:46 | HMH.EDSOB ---
ED Disposition Clinical Impression: Acute exacerbation of chronic obstructive airways disease, Hypokalemia Community acquired pneumonia Qualifiers: Laterality: right Lung location: lower lobe of lung Qualified Code(s): J18.9 - Pneumonia, unspecified organism Disposition: Home, Self-Care Condition on Discharge: Good Instructions: Pneumonia-Adult Prescriptions: Codeine Phosphate/Guaifenesin [Guaifen-Codeine 100-10 mg/5 ml] 5 ml PO BID #60 ml Transmission Status: Received by [id number] Ondansetron [Zofran 4mg ODT] 4 mg PO BIDP PRN #10 tab PRN Reason: Nausea Transmission Status: Pending to [id number] Referrals: Wenceslao Gandara [Primary Care Provider] - - Critical Care Critical Care Time: No Attestation: On 07/05/21, the high probability of a clinically significant, sudden or life threatening deterioration of the following system(s) required my full and direct attention, intervention and personal management. The time I documented below is in addition to time spent performing reported procedures but includes the following listed in this critical care notation. Medical Decision Making - Medical Records Medical records reviewed: Yes: I reviewed the patient's medical records. - Myke Inquiry Pt receiving controlled substance: No Vital Signs: 07/05/21 18:20 07/05/21 19:12 07/05/21 19:13 Temperature 98.2 F Temperature Source Oral Pulse Rate 87 83 Pulse Rate [Left Radial] 82 Respiratory Rate 22 Blood Pressure [Right Arm] 113/72 Blood Pressure Mean [Right Arm] 85 Blood Pressure Source [Right Arm] Automatic Cuff Blood Pressure Position [Right Arm] Sitting 02 Sat by Pulse Oximetry 96 Oxygen Delivery Method Room Air - Lab Data Lab Results 07/05/21 18:40: WBC 8.4, RBC 4.19 L, Hgb 14.3, Hct 41.7, MCV 99.6 H, MCH 34.1 H, MCHC 34.2, RDW 14.5, Plt Count 478 H, MPV 7.9, Neut % (Auto) 56.2, Lymph % (Auto) 24.6, [place] % (Auto) 15.7 H, Eos % (Auto) 1.4, Baso % (Auto) 2.2 H, Neut # (Auto) 4.7, Lymph # (Auto) 2.1, [place] # (Auto) 1.3 H, Eos # (Auto) 0.1, Baso # (Auto) 0.2 07/05/21 18:40: Sodium 133 L, Potassium 2.5 L*, Chloride 94 L, Carbon Dioxide 35 H, Anion Gap 6.5, BUN 3 L, Creatinine 0.40 L, Estimated Creat Clear 204, Estimated GFR 172, Est GFR ( Amer) 208, Glucose 99, Calcium 9.1, Total Bilirubin 0.4, AST 20, ALT 11 L, Alkaline Phosphatase 74, Troponin I < 0.01, Total Protein 6.3, Albumin 3.3 L, Globulin 3.0, Albumin/Globulin Ratio 1.1 07/05/21 18:40: Lactate 1.8 Result diagrams: 07/05/21 18:40 07/05/21 18:40 Orders (Tests/Meds): ED MEDICATIONS Generic Name Dose Route Start Last Admin Trade Name Freq PRN Reason Stop Dose Admin Potassium Chloride/Water 100 mls @ 100 mls/hr 07/05/21 19:15 07/05/21 19:29 Potassium Chloride 10meq/100ml Ivpb IV 07/05/21 20:14 100 mls/hr ONCE ONE Administration Magnesium Sulfate 2 gm in 50 mls @ 50 mls/hr 07/05/21 19:16 07/05/21 19:28 Magnesium Sulfate 2gm/50ml Premix IV 07/05/21 20:15 50 mls/hr ONCE ONE Administration Lactated Ringer's 1,000 mls @ 999 mls/hr 07/05/21 19:30 07/05/21 19:26 Lactated Ringer's 1000 Ml Bag IV 07/05/21 20:30 999 mls/hr .Q1H1M SADE Administration Sodium Chloride 10 ml 07/05/21 18:41 Sodium Chloride 0.9% 10ml Flush Syringe IV 08/04/21 18:40 NEEDED PRN Maintain IV Site Discontinued Medications Generic Name Dose Route Start Last Admin Trade Name Freq PRN Reason Stop Dose Admin Albuterol/Ipratropium 3 ml 07/05/21 18:52 07/05/21 19:12 Ipratropium/Albuterol 3 Ml Neb IH 07/05/21 18:53 3 ml ONCE ONE Administration Potassium Chloride 60 meq 07/05/21 19:15 07/05/21 19:27 Potassium Chloride 20meq Tab PO 07/05/21 19:16 60 meq ONCE ONE Administration ORDERS Category Date Time Status Rapid PCR Covid and Flu A/B Stat Lab 07/05/21 18:41 Ordered Troponin I Q3H Lab 07/05/21 21:45 Ordered Troponin I Q3H Lab 07/06/21 00:45 Ordere
--- NOTE | 2021-07-05 18:54 | PC.NURSE ---
patient to radiology
[2021-07-05 19:04] LABS: Basophils # 0.2 K/mm3 (0-0.2); Basophils % 2.2 % (0.1-2.0); Eosinophils # 0.1 K/mm3 (0.0-0.4); Eosinophils % 1.4 % (0.1-12.0); Hematocrit 41.7 % (37.0-47.0); Hemoglobin 14.3 g/dL (12.2-16.2); Lymphocytes # 2.1 K/mm3 (0.7-4.5); Lymphocytes % 24.6 % (10-50); Mean Corpuscular HGB Conc 34.2 g/dL (31.8-35.4); Mean Corpuscular Hemoglobin 34.1 pg (27.0-31.2); Mean Corpuscular Volume 99.6 fl (81-99); Mean Platelet Volume 7.9 fl (7.4-10.4); Monocytes # 1.3 K/mm3 (0.1-1.0); Monocytes % 15.7 % (1.7-9.3); Neutrophils # 4.7 K/mm3 (1.8-7.8); Neutrophils % 56.2 % (37.0-80.0); Platelet Count 478 K/mm3 (142-424); Red Blood Count 4.19 M/mm3 (4.20-5.40); Red Cell Distribution Width 14.5 % (11.5-17.5); White Blood Count 8.4 K/mm3 (4.8-10.8)
[2021-07-05 19:09] LABS: Chloride 94 mmol/L (98-107)
[2021-07-05 19:10] LABS: Sodium 133 mmol/L (136-145)
[2021-07-05 19:12] LABS: Alanine Aminotransferase 11 U/L (12-78); Alkaline Phosphatase 74 U/L (38-126); Anion Gap 6.5 mEq/L (5-15); Aspartate Amino Transferase 20 U/L (14-36); Bilirubin,Total 0.4 mg/dl (0.2-1.3); Blood Urea Nitrogen 3 mg/dl (7-17); Carbon Dioxide 35 mmol/L (22.0-30.0); Creatinine Clearance Estimated 204 mL/min (50-200); Estimated Glomerular Filt Rate 172 ml/min (>60); GFR (African American) 208 ML/MIN (>60); Lactic Acid 1.8 mmol/L (0.7-2.1)
[2021-07-05 19:13] LABS: Albumin Level 3.3 g/dl (3.5-5.0); Albumin/Globulin Ratio 1.1 (1.1-1.8); Calcium 9.1 mg/dl (8.4-10.2); Glucose 99 mg/dl (74-100); Total Protein,Serum 6.3 g/dl (6.3-8.2)
[2021-07-05 19:14] LABS: Potassium 2.5 mmoL/L (3.5-5.1)
--- NOTE | 2021-07-05 19:15 | PC.NURSE ---
Dr. Nicholas notified of critical potassium
[2021-07-05 19:25] LABS: Troponin I < 0.01 ng/ml (0.00-0.034)
== END 2021-07-05 21:40 | disposition home or self-care (01) ==
PROVIDERS: Emergency Provider Emergency Medicine; PCP Pediatrics
DX: J18.9 Pneumonia, unspecified organism (principal); J44.1 Chronic obstructive pulmonary disease with (acute) exacerbation; E87.6 Hypokalemia; F17.210 Nicotine dependence, cigarettes, uncomplicated; I25.2 Old myocardial infarction; Z95.0 Presence of cardiac pacemaker; Z79.899 Other long term (current) drug therapy
CPT/HCPCS: 71046; 80053; 83605; 84484; 85025; 93005; 96365; 96367; 99284; J3475

== ENCOUNTER 2021-07-24 18:06 | Emergency (ER) | payer MEDICARE, SELFPAY ==
--- NOTE | 2021-07-24 17:55 | ECG_ITS ---
APPROVED REPORT Exam: Resting ECG HR:68 bpm ECG Measurements Heart Rate 68 AXES QRSd 106 QRS 239 QT 381 T 52 QTc 398 Conclusion ATRIAL FIBRILLATION RIGHT AXIS DEVIATION [QRS AXIS > 100] PATTERN CONSISTENT WITH PULMONARY DISEASE ABNORMAL ECG UNCONFIRMED REPORT Electronically signed by : Rosalino Rutledge MD 07/27/2021 17:47:47
[2021-07-24 17:59] VITALS: BP 126/76; PULSE 70; RESP 18; TEMP 36.6; O2SAT 96; BMI 26.4
--- NOTE | 2021-07-24 18:09 | XR_ITS ---
PROCEDURE INFORMATION: Exam: XR Chest Exam date and time: 07/24/2021 6:13 PM Age: 45 years old Clinical indication: Sternal or substernal pain; Prior surgery; Surgery date: 6+ months; Surgery type: Open heart pacemaker; Additional info: Chest pain TECHNIQUE: Imaging protocol: XR of the chest. Views: 1 view. COMPARISON: CR XR CHEST 2V 07/05/2021 6:44 PM FINDINGS: Lungs: Bibasilar opacities are most likely atelectasis. Pleural spaces: Unremarkable. No pleural effusion. No pneumothorax. Heart/Mediastinum: Cardiomegaly. Bones/joints: Status post median sternotomy. IMPRESSION: Bibasilar opacities are most likely atelectasis. However, early pulmonary venous congestion is possible in the appropriate clinical setting.
--- NOTE | 2021-07-24 18:12 | HMH.EDGENADL ---
ED Disposition Clinical Impression: Hypokalemia, Hypomagnesemia, Atypical chest pain Acute bronchitis Qualifiers: Bronchitis organism: unspecified organism Qualified Code(s): J20.9 - Acute bronchitis, unspecified Disposition: Home, Self-Care Condition on Discharge: Good Additional Instructions: Potassium and magnesium as prescribed. Levaquin as prescribed. Follow-up with Dr. Gandara, primary care next week, call Tuesday for appointment. Follow-up with cardiology, Dr. Herr, next week, call Tuesday for appointment. Additional instructions for CHEST PAIN: See your physician as soon as possible for further evaluation. Return immediately if worsening chest pain, vomiting, shortness of breath, fever, coughing of blood. Prescriptions: Potassium Chloride [K-Tab ER 20 mEq] 20 meq PO DAILY #10 tab Transmission Status: Received by [id number] levoFLOXacin [Levaquin 500mg tab] 500 mg PO DAILY #7 tab Transmission Status: Received by [id number] Magnesium Oxide 400 mg PO DAILY #10 tab Transmission Status: Received by [id number] Referrals: ProviderMarcel MD [Primary Care Provider] - Lorenzo Herr MD [Staff Physician] - - Critical Care Critical Care Time: No Attestation: On , the high probability of a clinically significant, sudden or life threatening deterioration of the following system(s) required my full and direct attention, intervention and personal management. The time I documented below is in addition to time spent performing reported procedures but includes the following listed in this critical care notation. Medical Decision Making - Medical Records Medical records reviewed: Yes: I reviewed the patient's medical records. MR Comment: Reviewed emergency department note from recent visit here on 07/05/2021. Presented with chest pain and cough with green sputum. Noted to be hypokalemic. Given IV and oral potassium in the emergency department, no rx. - Myke Inquiry Pt receiving controlled substance: No Vital Signs: 07/24/21 17:59 Temperature 97.8 F Temperature Source Oral Pulse Rate [Radial] 70 Respiratory Rate 18 Blood Pressure [Right Arm] 126/76 Blood Pressure Mean [Right Arm] 92 Blood Pressure Position [Right Arm] Sitting 02 Sat by Pulse Oximetry 96 Oxygen Delivery Method Room Air - Lab Data Lab Results 07/24/21 17:58: WBC 7.4, RBC 3.63 L, Hgb 12.2, Hct 36.8 L, MCV 101.6 H, MCH 33.6 H, MCHC 33.0, RDW 14.4, Plt Count 291, MPV 7.7, Neut % (Auto) 56.9, Lymph % (Auto) 29.6, [place] % (Auto) 10.5 H, Eos % (Auto) 1.6, Baso % (Auto) 1.5, Neut # (Auto) 4.2, Lymph # (Auto) 2.2, [place] # (Auto) 0.8, Eos # (Auto) 0.1, Baso # (Auto) 0.1 07/24/21 17:58: Sodium 130 L, Potassium 2.8 L*, Chloride 99, Carbon Dioxide 28, Anion Gap 5.8, BUN < 2 L, Creatinine 0.30 L, Estimated Creat Clear 258, Estimated GFR 239, Est GFR ( Amer) 290, Glucose 76, Calcium 7.7 L, Troponin I < 0.01 07/24/21 17:58: NT-Pro-B Natriuret Pep 196 H 07/24/21 17:58: Magnesium 1.3 L Result diagrams: 07/24/21 17:58 07/24/21 17:58 Orders (Tests/Meds): ED MEDICATIONS Generic Name Dose Route Start Last Admin Trade Name Freq PRN Reason Stop Dose Admin Magnesium Oxide 400 mg 07/25/21 18:43 Magnesium Oxide 400mg Tablet PO 07/25/21 18:44 ONCE ONE Discontinued Medications Generic Name Dose Route Start Last Admin Trade Name Freq PRN Reason Stop Dose Admin Azithromycin 500 mg 07/24/21 18:51 07/24/21 19:29 Azithromycin 250mg Tablet PO 07/24/21 18:52 500 mg ONCE ONE Administration Potassium Chloride 40 meq 07/24/21 18:29 07/24/21 18:35 Potassium Chloride 20meq Tab PO 07/24/21 18:30 40 meq ONCE ONE Administration ORDERS Category Date Time Status Troponin I Q3H Lab 07/24/21 21:15 Ordered Troponin I Q3H Lab 07/25/21 00:15 Ordered - Radiology Data #1 Image(s): Chest Image Reviewed: Yes I reviewed the patient's radiology image, Yes I have re
[2021-07-24 18:18] LABS: Basophils # 0.1 K/mm3 (0-0.2); Basophils % 1.5 % (0.1-2.0); Eosinophils # 0.1 K/mm3 (0.0-0.4); Eosinophils % 1.6 % (0.1-12.0); Hematocrit 36.8 % (37.0-47.0); Hemoglobin 12.2 g/dL (12.2-16.2); Lymphocytes # 2.2 K/mm3 (0.7-4.5); Lymphocytes % 29.6 % (10-50); Mean Corpuscular Hemoglobin 33.6 pg (27.0-31.2); Mean Corpuscular Volume 101.6 fl (81-99); Mean Platelet Volume 7.7 fl (7.4-10.4); Monocytes # 0.8 K/mm3 (0.1-1.0); Monocytes % 10.5 % (1.7-9.3); Neutrophils # 4.2 K/mm3 (1.8-7.8); Neutrophils % 56.9 % (37.0-80.0); Platelet Count 291 K/mm3 (142-424); Red Blood Count 3.63 M/mm3 (4.20-5.40); Red Cell Distribution Width 14.4 % (11.5-17.5); White Blood Count 7.4 K/mm3 (4.8-10.8)
[2021-07-24 18:20] LABS: Chloride 99 mmol/L (98-107); Sodium 130 mmol/L (136-145)
[2021-07-24 18:23] LABS: Anion Gap 5.8 mEq/L (5-15); Calcium 7.7 mg/dl (8.4-10.2); Carbon Dioxide 28 mmol/L (22.0-30.0); Creatinine Clearance Estimated 258 mL/min (50-200); Estimated Glomerular Filt Rate 239 ml/min (>60); GFR (African American) 290 ML/MIN (>60); Glucose 76 mg/dl (74-100)
[2021-07-24 18:27] LABS: Blood Urea Nitrogen < 2 mg/dl (7-17)
[2021-07-24 18:28] LABS: Potassium 2.8 mmoL/L (3.5-5.1)
--- NOTE | 2021-07-24 18:28 | PC.NURSE ---
dr mccarthy informed of critical k+
[2021-07-24 18:32] LABS: NT Pro Brain Natriuretic Pep. 196 pg/mL (0-125)
[2021-07-24 18:38] LABS: Magnesium 1.3 mg/dl (1.6-2.3)
[2021-07-24 18:40] LABS: Troponin I < 0.01 ng/ml (0.00-0.034)
[2021-07-24 21:21] LABS: Troponin I < 0.01 ng/ml (0.00-0.034)
[2021-07-24 21:38] VITALS: BP 125/50; PULSE 70; RESP 16; TEMP 36.9; O2SAT 96
== END 2021-07-24 21:38 | disposition home or self-care (01) ==
PROVIDERS: Emergency Provider Emergency Medicine
DX: J20.9 Acute bronchitis, unspecified (principal); E83.42 Hypomagnesemia; I50.9 Heart failure, unspecified; J44.9 Chronic obstructive pulmonary disease, unspecified; I25.2 Old myocardial infarction; Z95.0 Presence of cardiac pacemaker; Z72.0 Tobacco use; Z88.5 Allergy status to narcotic agent; Z79.899 Other long term (current) drug therapy
CPT/HCPCS: 71045; 80048; 83735; 83880; 84484; 85025; 93005; 99283